=== PATIENT | female | born 2005 | race Caucasian/White ===

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

== ENCOUNTER 2023-09-22 08:00 | Outpatient (RCR) | payer MEDICAID, SELFPAY ==
--- NOTE | 2023-09-22 10:20 | BH.SGPN.GN ---
Behaviors/Verbalizations/Mental Status: []Pt alert and oriented, neatly dressed and groomed. Eye contact good. Motor activity appropriate. Speech within normal limits. Affect congruent, mood anxious. Thoughts linear, logical, no signs of hallucinations or delusions. Client Response/Progress/Benefit: []Pt was mostly a passive participant in small group discussion. Pt?s group worked together to identify benefits of healthy relationships which included insight, accountability, and guidance. Group identified factors that lead to unhealthy relationships. Pt did not share any personal factors, but she appeared to be listening to peers. Actively participated in group experiential activity and expressed ideas to group. Benefited from increased insight and awareness of benefits of healthy relationships and factors that contribute to unhealthy relationships. Will continue IOP tx to prevent decompensation, gain healthy coping skills, and improve daily functioning. Narrative Note: []
--- NOTE | 2023-09-22 10:30 | BH.NA ---
Physical Data Vital Signs Pulse Rate: 71 Blood Pressure: 107/65 Height/Weight Height: 1.5 m Weight:: 45.359 kg Weight in Pounds: 100.0 lbs Current Medication Compliance Medication Compliance Do you take your medication as prescribed?: Yes Nutritional History Appetite Nutritional Instructions: Describe your appetite:: Fair Additional nutritional information:: Client denies change in weight or appetite. Client is on a medication to help stimulate appetite/weight gain. Functional Assessment Sleep Pattern Describe any problems with sleeping: Client states she sleeps about 7 hours per night. Sensory/Communication Assess Communication Problems Do you have difficulty understanding what people are saying?: No Medical Problems/History Pain Assessment Do you have acute or chronic pain?: No Surgical History Surgical History Have you had any surgeries? If so, list type and date:: No Substance Abuse Substance Abuse Please describe substance abuse in the last 30 days:: Client denies alcohol, tobacco or substance use. Client states she drinks 1 cup of coffee per day. Mental Status Summary Mental Status Significant Findings/Observations on Appearance and Mood:: Client is alert and oriented x 4. Client is casually groomed with good hygiene. Client is cooperative with assessment. Client makes good eye contact. Client's voice has normal rate and volume. Client has appropriate affect. Client makes logical associations and has normal processing. Client denies delusions/hallucinations. Client denies SI. Suicide Assessment Suicidal Ideation Are you currently or have you been suicidal in the past?: Yes Suicidal Intentional Rating Scale (SIRS): Suicidal thoughts (past) Physician Notification Past Psychiatric History MH Treatment Hx Past Psychiatric Medications:: Client states she has only been on the current medications she is taking (Focalin, Risperdal, Prozac, Clonidine) Age of first mental health symptoms: Client states she first took medications for ADHD around age 7. Describe (age, circumstance, etc) any past hospitalizations: [address] [place] [address] Current providers for mental health treatment (counselor, psychiatrist, therapeutic case manager, etc.): Kathy for counseling at [facility], Dr. mAador at [facility] for psychiatry Fall Risk Assessment Age Age: Less than 60 Mental Status Mental Status: Willing & able to ask for assistance when needed Physical Status Physical Status: No problems Impairments Impairments: None Elimination Elimination: Continent AND independent Gait or Balance Gait or Balance: Walks independently Hx of Falls History of falls in the past 6 months: No known history Medications/Substances Psychotropics:: Antidepressants, Antipsychotics and Stimulants Medications/substances used within the past 24 hours or ordered to administer: 3 or more of the medications/substances listed above Total Score Total Points:: 2 RN Summary of Impressions Impressions Recommendations Impressions: Psychiatric Issues: 1. Major depressive disorder, recurrent, severe without psychosis 2. Generalized anxiety disorder 3. PTSD 4. Borderline personality disorder 5. ADHD 6. Primary support issues Level of Care How do the client's current symptoms and functional deficits support need for this level of care?: Client was referred to IOP by her therapist after a recent increase in self-injury behaviors that concerned her family. Client states the last time she cut herself was about one month ago and denies any open areas. Client states she has a history of self-harm but had not done it in awhile until recently. Client also reports erratic moods. Client denies SI. IOP will promote gains and prevent further decompensation while providing social support and skills training.
[2023-09-22 10:48] VITALS: BP 107/65; PULSE 71
--- NOTE | 2023-09-22 11:18 | BH.SGPN.GN ---
Behaviors/Verbalizations/Mental Status: [] Client alert and oriented, casually dressed and groomed. Eye contact good. Motor activity appropriate. Speech within normal limits. Affect constricted, mood depressed, anxious. Thoughts linear, logical, no signs of hallucinations or delusions. Client Response/Progress/Benefit: [] Client first day in IOP tx, responded well to session, engaged and taking notes throughout. Worked with group to identify how variables contributing to the stability of the ball in the activity with characteristics of healthy and unhealthy relationships. Attentive during psychoeducation about characteristics of healthy, unhealthy, and abusive relationships. Client spent time identifying healthy attributes within current relationships, as well as areas she would like to improve upon. Pt however declined to share today, will continue to encourage as she increases comfort in tx environment. Appeared to benefit from identifying the current healthy relationship attributes and an area client wants to work on to build healthier relationships. Client to continue IOP to increase healthy coping skills, challenge distortions, and improve mood stability. Narrative Note: []
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
--- NOTE | 2023-09-22 12:30 | BH.DR.ITP ---
Initial Treatment Plan Patient Information Visit Information: ADMISSION DATE: EXPECTED LOS: 4-6 weeks Problems/Symptoms Problem #1:: Depression Symptom:: Sadness, hopelessness, worthlessness, low energy, emotional lability, decreased concentration, recent thoughts of self-harm and recent suicidal ideation Problem #2:: Anxiety Symptom:: Worry, rumination, panic attacks, avoidance, flashbacks
--- NOTE | 2023-09-29 09:00 | BH.SGPN.GN ---
Behaviors/Verbalizations/Mental Status: [] Eye contact is good. Motor activity is appropriate. Appearance is casual. Speech is Appropriate. Mood is anxious. Affect is congruent. Thoughts are linear and logical. No evidence of psychosis. Reviewed daily check in sheet and no reports of suicidal ideations or intent. Client Response/Progress/Benefit: [] Pt participated when prompted. Attentive. Daily symptom tracker notes 11/19 for anxiety, depression, self-harm urges, SI/intent, and irritability. Emotion for today is ?tired?. Check-in today was very short and superficial. Mental health win was spending time with support and being more social rather than isolating. Believes that she is handling her emotions ?more effectively? however did not elaborate. Limited progress noted. Benefited from group support, encouragement, and feedback. Will continue in IOP to prevent decompensation, stabilize mood, and increase healthy coping. Narrative Note: []
--- NOTE | 2023-09-29 10:15 | BH.SGPN.GN ---
Behaviors/Verbalizations/Mental Status: [Patient was alert and oriented, casually dressed and groomed. Eye contact good, motor activity normal, speech within normal limits. Affect congruent, mood content. Thoughts linear, logical, no signs of hallucinations or delusions. ] Client Response/Progress/Benefit: [Patient was open and participated in group discussions. Attentive during psychoeducation on growth mindset. Participated during the activity. Interactive group discussion on growth mindset in which group verbalized their current fixed mindsets and how they affect their mental health. Patient shared that one of her fixed thoughts was ?I just mess everything up no matter how hard I try?. Patient benefited from increased awareness of growth mindset and fixed thoughts and how fixed thoughts impact their mental health. Will continue in IOP to promote gains, further combat distorted thinking, and improve daily functioning.] Narrative Note: []
--- NOTE | 2023-09-29 11:10 | BH.SGPN.GN ---
Behaviors/Verbalizations/Mental Status: []Pt alert and oriented, neatly dressed and groomed. Eye contact good. Motor activity appropriate. Speech within normal limits. Affect congruent, mood calm. Thoughts linear, logical, no signs of hallucinations or delusions. Client Response/Progress/Benefit: [] Pt was an active participant during activity and discussion AEB providing some input, connecting with peers, as well as taking notes throughout. Pt did well to engage as group worked on identifying characteristics and benefits of adopting a growth mindset. Worked with fellow participants in reframing the example fixed thoughts into growth mindset thoughts. Pt worked on changing own fixed thought of ?nothing I do is ever good enough? to growth thought of ?I am enough the way I am.? Benefitted from discussing benefits of growth mindset and brainstorming strategies for prompting growth-mindset. Pt appeared to benefit from working in small groups to challenge own thoughts and help peers. Pt will continue IOP tx to prevent decompensation, improve daily functioning, and increase healthy self-care practices. Narrative Note: []
--- NOTE | 2023-10-04 09:20 | BH.COMM ---
Communication Note Communication with Client Communication Note: Cancelled IOP
--- NOTE | 2023-10-05 09:00 | BH.COMM ---
Communication Note Communication with Client Communication Note: Cancelled IOP today stating called into work. Plan to attend tomorrow.
--- NOTE | 2023-10-06 09:00 | BH.COMM ---
Communication Note Communication with Client Communication Note: Cancelled IOP again today stating illness.
--- NOTE | 2023-10-06 09:19 | BH.COMM ---
Communication Note Communication with Client Communication Note: cancelled IOP
--- NOTE | 2023-10-08 09:18 | BH.COMM ---
Communication Note Communication with Client Communication Note: no call/ no show
--- NOTE | 2023-10-11 12:58 | BH.DS_ITS ---
Discharge Summary Demographics Date of Admission:: 09/22/23 Discharge Date: 10/11/23 Presenting Problems at Admission:: The patient is a 18-year-old single female with a history of PTSD, JAVID, depression, borderline personality disorder and ADHD who was referred to the [facility] behavioral health IOP by her outpatient therapist who was also present during the initial intake 2 weeks ago. Patient endorses erratic moods swings at times but mostly has experienced sadness and crying. She has low motivation, hopelessness, worthlessness but denies anhedonia. The patient was referred for worsening thoughts of self-harm and worsening symptoms of depression in the past few months after conflict with her adoptive mother. Discharge Diagnoses:: 1. Major depressive disorder, recurrent, severe without psychosis F33.2 2. Generalized anxiety disorder 3. PTSD 4. Borderline personality disorder 5. ADHD Reason for Discharge:: Due to various external stressors and circumstances client only attended 2 IOP days. Client agreed with an IOP staff member that she could not consistently commit to IOP at this time. Client chose to discharge from program. Treatment Progress During Treatment & Response: No progress observed due to client only attending 2 IOP days. Limited attendance led to patient not being able to be seen by her individual IOP therapist for one on one counseling. Issues Still to be Addressed:: Client could benefit from work on mood stabilization, distress tolerance, building confidence, working on attachment and abandonment issues, and challenging distorted thoughts. Discharge Recommendations/Instructions:: Client encouraged to continue to follow up with already established outpatient counselor and psychiatrist. Discharge Handout
== END 2023-10-13 08:48 | disposition home or self-care (01) ==
LOC: BHIOP 08:00
PROVIDERS: Referring Provider Psychiatry & Neurology Psychiatry; Visit Provider Psychiatry & Neurology Psychiatry
DX: F33.2 Major depressive disorder, recurrent severe without psychotic features (principal); F41.1 Generalized anxiety disorder; F43.10 Post-traumatic stress disorder, unspecified; F60.3 Borderline personality disorder; F90.9 Attention-deficit hyperactivity disorder, unspecified type
CPT/HCPCS: 90792; H2012; H2020